=== PATIENT | male | born 1995 | race Caucasian/White ===

== ENCOUNTER → 2018-11-16 14:09 | Outpatient (CLI) | payer OTHER, SELFPAY ==
[2018-11-16 15:28] LABS: Absolute Lymphocyte Count 2.63 X10^3/ul (0.83-4.51); Absolute Neutrophil Count 3.7 X10^3/uL (2.0-7.7); Basophil# 0.08 X10^3/uL; Basophil% 1.1 % (0-1); Eosinophil# 0.28 X10^3/uL; Eosinophils% 3.9 % (0-5); Hemoglobin 13.8 g/dl (13.0-16.5); Lymphocyte # 2.63 X10^3/ul (4.0); Lymphocyte % 36.3 % (19-41); Mean Corp Hgb Conc 34.5 g/gl (32-36); Mean Corpuscular Hgb 28.4 pg (27.0-32.0); Mean Corpuscular Volume 82.3 fL (80-94); Mean Platelet Vol. 11.1 fl (6.2-12.0); Monocyte# 0.55 X10^3/uL; Monocyte% 7.6 % (0-10); Platelet Count 212 K/mm3 (150-450); RBC Distribution Width CV 13.4 % (11.6-14.6); RBC Distribution Width SD 40.4 fl (35.1-43.9); Red Blood Count 4.86 M/mm3 (4.6-6.2); White Blood Count 7.3 K/mm3 (4.4-11.0)
[2018-11-16 15:29] LABS: POSITIVE COUNT NO; POSITIVE DIFFERENTIAL NO; POSITIVE MORPHOLOGY NO
[2018-11-16 16:14] LABS: ALB/GLOB Ratio 1.1 RATIO (0.9-2.4); AST(SGOT) 38 U/L (15-37); Alanine Aminotransfer ALT/SGPT 37 U/L (16-61); Albumin, Serum 3.9 g/dL (3.2-5.0); Alkaline Phosphatase 60 U/L (45-117); Anion Gap 11 (5-15); BUN 14 mg/dL (7-18); BUN/Creat Ratio 10.7 RATIO (10-20); Calcium,Total 8.6 mg/dL (8.5-10.1); Chloride 108 mmol/L (98-107); Creatinine, Serum 1.31 mg/dL (0.70-1.30); EST Glomerular Filtration Rate 73 mL/min (>60); Est Glom Filt Rate - Afr Amer 89 mL/min (>60); Globulin 3.6 g/dL (2.2-4.2); Glucose 109 mg/dL (74-106); Potassium 3.8 mmol/L (3.5-5.1); Protein, Total 7.5 g/dL (6.4-8.2); Sodium Level 144 mmol/L (136-145); T4 Free Direct 0.84 ng/dL (0.76-1.46); Thyroid Stim Hormone (TSH) 0.82 uIU/mL (0.358-3.74)
[2018-11-21 16:07] LABS: HEPATITIS B SURFACE AG Negative (Negative); Hepatitis A AB, Total Negative (Negative); Hepatitis A IgM Antibody Negative (Negative); Hepatitis B Core AB IgM Negative (Negative); Hepatitis B Core Ab Total Negative (Negative); Hepatitis C Ab <0.1 s/co ratio (0.0-0.9); QNTFERON TB Mitogen Value > 10.00 IU/mL (.); QNTFERON TB Nil Value 0.04 IU/mL (.); QNTFERON TB1+ Ag Value 0.04 IU/mL (.); QNTFERON TB2+ Ag Value 0.04 IU/mL (.)
[2018-11-22 12:25] LABS: Hep B Surface Antibodies Non Reactive (.); QNTIFERON TB Positive Criteria Negative (Negative); Thyroid Peroxidase AB 10 IU/mL (0-34)
== END ==
PROVIDERS: Referring Provider Dermatology Pediatric Dermatology; Visit Provider Dermatology Pediatric Dermatology
DX: L40.0 Psoriasis vulgaris (principal)
CPT/HCPCS: 36415; 80053; 84439; 84443; 84480; 85025; 86376; 86480; 86704; 86705; 86706; 86708; 86709; 86803; 87340